=== PATIENT | female | born 1985 | race American Indian/Alaskan Native ===

== ENCOUNTER 2017-04-13 11:00 | Emergency (ER) | payer SELFPAY ==
[2017-04-13 12:17] LABS: Basophils % (Auto) 0.5 % (0.0-1.8); Eosinophils % (Auto) 0.3 % (0.0-4.3); Hematocrit 38.8 % (30.3-42.9); Hemoglobin 12.9 gm/dl (10.1-14.3); Mean Corpuscular HGB Conc 33 % (30-34); Mean Corpuscular Hemoglobin 29 pg (28-32); Mean Corpuscular Volume 87 fl (79-97); Platelet Count 271 K/mm3 (140-440); Red Blood Count 4.44 M/mm3 (3.65-5.03); Red Cell Distribution Width 14.2 % (13.2-15.2); White Blood Count 6.4 K/mm3 (4.5-11.0)
[2017-04-13 12:33] LABS: Anion Gap 18 mmol/L; BUN/Creatinine Ratio 8.57; Blood Urea Nitrogen 6 mg/dL (7-17); Calcium 8.9 mg/dL (8.4-10.2); Carbon Dioxide 22 mmol/L (22-30); Chloride 98.3 mmol/L (98-107); Glucose 82 mg/dL (65-100); Potassium 3.3 mmol/L (3.6-5.0); Sodium 135 mmol/L (137-145)
[2017-04-13 15:17] LABS: Bacteria,Urine 1+ /HPF (Negative); Bilirubin,Urine NEG (Negative); Blood,Urine NEG (Negative); Ketones,Urine 80 mg/dL (Negative); Leukocyte Esterase,Urine LG (Negative); Mucus,Urine 2+ /HPF; Nitrite,Urine NEG (Negative)
[2017-04-13 15:27] VITALS: BP 101/76
[2017-04-13] MEDS ORDERED: ZOFRAN IV ONE (15:53)
--- NOTE | 2017-04-13 15:53 | Emergency Department Report ---
<ORLANDO SHANKS - Last Filed: 04/13/17 17:49> ED General Adult HPI - General Chief complaint: Nausea/Vomiting/Diarrhea Stated complaint: NAUSEA/VOMITING Time Seen by Provider: 04/13/17 15:10 Source: patient Mode of arrival: Ambulatory Limitations: No Limitations - History of Present Illness Initial comments: n/v abdominal pain x 1 week LMP 03/05/2017, pt describes pain as aching cramping pt denies vaginal discharge no vaginal bleeding no fever no chills" Onset/Timin -: week(s) Location: abdomen Radiation: back Severity scale (0 -10): 3 Quality: aching Consistency: intermittent Improves with: none Worsens with: none Associated Symptoms: other (nausea no vomiting ). denies: chest pain, cough, fever/chills, shortness of breath, weakness Treatments Prior to Arrival: none - Related Data Previous Rx's Medication Instructions Recorded Last Taken Type Acetaminophen/Codeine [Tylenol #3] 1 tab PO Q8H PRN #12 tablet 07/01/15 Unknown Rx Ibuprofen [Motrin] 800 mg PO Q8HR PRN #15 tablet 07/01/15 Unknown Rx Cephalexin [Keflex] 500 mg PO Q12HR #20 cap 04/13/17 Unknown Rx Ondansetron [Zofran Odt] 4 mg PO Q8H PRN #12 tab.rapdis 04/13/17 Unknown Rx Allergies Allergy/AdvReac Type Severity Reaction Status Date / Time No Known Allergies Allergy Verified 07/01/15 16:40 ED Review of Systems ROS: Stated complaint: NAUSEA/VOMITING Other details as noted in HPI Constitutional: denies: chills, fever Eyes: denies: eye pain, eye discharge, vision change ENT: denies: ear pain, throat pain Respiratory: denies: cough, shortness of breath, wheezing Cardiovascular: denies: chest pain, palpitations Endocrine: no symptoms reported Gastrointestinal: abdominal pain, nausea. denies: diarrhea, constipation, hematemesis, melena, hematochezia Genitourinary: urgency. denies: dysuria, hematuria, discharge, dyspareunia Musculoskeletal: back pain Skin: denies: rash, lesions Neurological: denies: headache, weakness, paresthesias Psychiatric: denies: anxiety, depression Hematological/Lymphatic: denies: easy bleeding, easy bruising ED Past Medical Hx - Past Medical History Previous Medical History?: No - Social History Smoking Status: Never Smoker Substance Use Type: None - Medications Home Medications: Home Medications Medication Instructions Recorded Confirmed Last Taken Type Acetaminophen/Codeine [Tylenol #3] 1 tab PO Q8H PRN #12 tablet 07/01/15 Unknown Rx Ibuprofen [Motrin] 800 mg PO Q8HR PRN #15 tablet 07/01/15 Unknown Rx Cephalexin [Keflex] 500 mg PO Q12HR #20 cap 04/13/17 Unknown Rx Ondansetron [Zofran Odt] 4 mg PO Q8H PRN #12 tab.rapdis 04/13/17 Unknown Rx ED Physical Exam - General Limitations: No Limitations ED Course Vital Signs 04/13/17 04/13/17 11:49 15:25 Temperature 98.7 F 98.4 F Pulse Rate 92 H 74 Respiratory 20 18 Rate Blood Pressure 114/72 Blood Pressure 101/76 [Left] O2 Sat by Pulse 100 100 Oximetry ED Medical Decision Making - Lab Data Result diagrams: 04/13/17 12:01 04/13/17 12:01 Laboratory Tests 04/13/17 04/13/17 04/13/17 12:01 12:01 12:01 WBC 6.4 RBC 4.44 Hgb 12.9 Hct 38.8 MCV 87 MCH 29 MCHC 33 RDW 14.2 Plt Count 271 Lymph % (Auto) 26.7 Real % (Auto) 7.3 Eos % (Auto) 0.3 Baso % (Auto) 0.5 Lymph # 1.7 Real # 0.5 Eos # 0.0 Baso # 0.0 Seg Neutrophils % 65.2 Seg Neutrophils # 4.2 Sodium 135 L Potassium 3.3 L Chloride 98.3 Carbon Dioxide 22 Anion Gap 18 BUN 6 L Creatinine 0.7 Estimated GFR > 60 BUN/Creatinine Ratio 8.57 Glucose 82 Calcium 8.9 HCG, Qual Positive Urine Color Urine Turbidity Urine pH Ur Specific Jean Urine Protein Urine Glucose (UA) Urine Ketones Urine Blood Urine Nitrite Urine Bilirubin Urine Urobilinogen Ur Leukocyte Esterase Urine WBC (Auto) Urine RBC (Auto) U Epithel Cells (Auto) Urine Bacteria (Auto) Urine Mucus 04/13/17 15:03 WBC RBC Hgb Hct MCV MCH MCHC RDW Plt Count Lymph % (Auto) Real % (Auto) Eos % (Auto) Baso % (Auto) Lymph # Real # Eos # Baso # Seg Neutrophils % Seg Neutrophils # Sodium Potassium Chloride Carbon Dioxide Anion Gap BUN Creatinine Estimated GFR BUN/Creatinine Ratio Glucose Calcium HCG, Qual Urine Color Yellow Urine Turbidity Slightly-cloudy Urine pH 5.0 Ur Specific Jean 1.026 Urine Protein 30 mg/dl Urine Glucose (UA) Neg Urine Ketones 80 Urine Blood Neg Urine Nitrite Neg Urine Bilirubin Neg Urine Urobilinogen 2.0 Ur Leukocyte Esterase Lg Urine WBC (Auto) 8.0 H Urine RBC (Auto) 10.0 U Epithel Cells (Auto) 13.0 Urine Bacteria (Auto) 1+ Urine Mucus 2+ - Medical Decision Making pt is a 31 y/o aaf who presents for abdominal pain and nausea x 1 week LMP 2016, pt denies fever or chills no vomiting , pt is currently tolerating po intake without n/v , exam: pt appears nontoxic , abd: bsx 4 qds abd soft nontender no rebound no bruit no hernia ,mild superpubic tenderness to palpation pt denies vaginal discharge no vaginal bleeding no pelvic pain , no cva tenderness, Labs noted , K:3.3, ua: luek, bacteria, wet prep, vaginal exam: no bleeding no discharge no trauma os is closed no bleeding no discharge, there no mass no lesions no open sores , no malodor, normal vaginal exam. Plan: US <14 weeks, Transvaginal : live interuterine , gestational age : 6 weeks and 2 days , Wet prep, GC/Ch culture, tx for uti, , follow up with [facility]: Bharat Cao Critical care attestation.: If time is entered above; I have spent that time in minutes in the direct care of this critically ill patient, excluding procedure time. ED Disposition Disposition: DC-01 TO HOME OR SELFCARE Is pt being admited?: No Does the pt Need Aspirin: No Condition: Good Instructions: (ED) Additional Instructions: follow up with [facility] as directed Prescriptions: Cephalexin [Keflex] 500 mg PO Q12HR #20 cap Ondansetron [Zofran Odt] 4 mg PO Q8H PRN #12 tab.rapdis PRN Reason: Nausea Referrals: PRIMARY CAREMD [Primary Care Provider] - 3-5 Days LUIZ CAO MD [Staff Physician] - 3-5 Days Forms: Work/School Release Form(ED) Time of Disposition: 17:55 <ANA ROMAN - Last Filed: 04/13/17 18:28> ED Medical Decision Making - Lab Data Result diagrams: 04/13/17 12:01 04/13/17 12:01
[2017-04-13] MEDS ORDERED: NACL 0.9% 1000 ML 1,000 ML IV ONE (15:55)
--- NOTE | 2017-04-13 17:42 | Ultrasound Report ---
FINAL REPORT EXAM: US OB TRANSVAGINAL HISTORY: pos hcg TECHNIQUE: Transabdominal and transvaginal sonography of the pelvis. PRIORS: None. FINDINGS: There is a single, live intrauterine . Ultrasound estimated gestational age is 6 weeks 2 days. Ultrasound estimated date of delivery is 05 December 2017. heart motion is detected. Remainder of uterus and adnexa are grossly unremarkable. IMPRESSION: 1. Single, live intrauterine .
--- NOTE | 2017-04-13 17:43 | Ultrasound Report ---
FINAL REPORT EXAM: US OB \T\lt; = 14 WEEKS FETUS HISTORY: pos hcg TECHNIQUE: Transabdominal and transvaginal sonography of the pelvis. PRIORS: None. FINDINGS: There is a single, live intrauterine . Ultrasound estimated gestational age is 6 weeks 2 days. Ultrasound estimated date of delivery is 05 December 2017. heart motion is detected. Remainder of uterus and adnexa are grossly unremarkable. IMPRESSION: 1. Single, live intrauterine .
== END 2017-04-13 18:06 | disposition home or self-care (01) ==
LOC: ED 11:00
DX: R10.9 Unspecified abdominal pain (principal); R11.0 Nausea
CPT/HCPCS: 36415; 76801; 76817; 80048; 81001; 82962; 84702; 84703; 85025; 87210; 87591; 96361; 96374; 99284; J2405; J7030

== ENCOUNTER 2017-05-12 23:08 | Emergency (ER) | payer OTHER ==
[2017-05-13 00:31] LABS: Basophils % (Auto) 0.4 % (0.0-1.8); Eosinophils % (Auto) 0.3 % (0.0-4.3); Hematocrit 41.9 % (30.3-42.9); Hemoglobin 14.7 gm/dl (10.1-14.3); Mean Corpuscular HGB Conc 35 % (30-34); Mean Corpuscular Hemoglobin 31 pg (28-32); Mean Corpuscular Volume 87 fl (79-97); Platelet Count 288 K/mm3 (140-440); Red Blood Count 4.81 M/mm3 (3.65-5.03); Red Cell Distribution Width 14.8 % (13.2-15.2); White Blood Count 7.2 K/mm3 (4.5-11.0)
[2017-05-13 01:17] LABS: Alanine Aminotransferase 11 units/L (7-56); Albumin 4.1 g/dL (3.9-5); Albumin/Globulin Ratio 1.1 %; Alkaline Phosphatase 53 units/L (35-129); Anion Gap 18 mmol/L; BUN/Creatinine Ratio 13.33; Blood Urea Nitrogen 8 mg/dL (7-17); Calcium 9.8 mg/dL (8.4-10.2); Carbon Dioxide 25 mmol/L (22-30); Chloride 94.7 mmol/L (98-107); Glucose 94 mg/dL (65-100); Lipase 33 units/L (13-60); Potassium 3.3 mmol/L (3.6-5.0); Sodium 134 mmol/L (137-145); Total Protein 7.9 g/dL (6.3-8.2)
--- NOTE | 2017-05-13 02:44 | Ultrasound Report ---
FINAL REPORT PROCEDURE: US OB \T\lt; = 14 WEEKS FETUS TECHNIQUE: Real-time transabdominal sonography of the uterus, placenta, amniotic fluid, adnexa, and fetus was performed with image documentation. Measurements were obtained to determine age/size. M-mode Doppler was used to document heartbeat. CPT 60800 HISTORY: abd pain COMPARISON: No prior studies are available for comparison. FINDINGS: CRL: 42.4 mm, which corresponds to a gestational age of: 11 weeks, 1 days. Yolk Sac: Normal. Embryonic Cardiac Activity: 164 beats per minute Gestational Sac: Normal. Amniotic fluid: Normal. Cervix: Normal. Right Ovary: Normal. Left Ovary: Normal. Estimated delivery date: 12/01/2017 Uterus and adnexa: Normal. IMPRESSION: Single live intrauterine gestation at approximately 11 weeks and 1 day. EDC by US 12/01/2017
[2017-05-13] MEDS ORDERED: ZOFRAN ODT ONE (04:16)
[2017-05-13] MEDS ORDERED: ZOFRAN IV ONE (04:52)
--- NOTE | 2017-05-13 04:52 | Emergency Department Report ---
ED General Adult HPI - General Chief complaint: Nausea/Vomiting/Diarrhea Stated complaint: PREG 8 WKS/NAUSEA/VOMITING Time Seen by Provider: 05/13/17 04:52 Source: patient, RN notes reviewed Mode of arrival: Ambulatory Limitations: No Limitations - History of Present Illness Initial comments: This is a 32-year-old female. She is previously unknown to me. Last menstrual period is March 03. She is 3, para 2. She reports that during her prior pregnancies, she did not have any issues with hyperemesis gravidarum. The patient presents to the ER with intractable nausea and vomiting, unintentional weight loss, abdominal cramping. She reports that the nausea and vomiting is basically constant during the duration of this . No fevers or chills. No chest pain or shortness of breath. No irritative or obstructive urinary symptoms. Her symptoms worsen when she attempts to eat. -: Gradual, week(s) Location: abdomen Quality: aching Consistency: intermittent Improves with: rest Worsens with: eating, movement Associated Symptoms: malaise, nausea/vomiting, weakness. denies: confusion, chest pain, cough - Related Data Previous Rx's Medication Instructions Recorded Last Taken Type Acetaminophen/Codeine [Tylenol #3] 1 tab PO Q8H PRN #12 tablet 07/01/15 Unknown Rx Ibuprofen [Motrin] 800 mg PO Q8HR PRN #15 tablet 07/01/15 Unknown Rx Cephalexin [Keflex] 500 mg PO Q12HR #20 cap 04/13/17 Unknown Rx Ondansetron [Zofran Odt] 4 mg PO Q8H PRN #12 tab.rapdis 04/13/17 Unknown Rx Doxylamine/Pyridoxine HCl 1 each PO QHS PRN #30 tablet. 05/13/17 Unknown Rx [Bertram Donis 10-10 mg Tablet] Angelique Root [Angelique] 250 mg PO QID PRN #60 capsule 05/13/17 Unknown Rx Ondansetron [Zofran Odt] 4 mg PO QID PRN #20 tab.rapdis 05/13/17 Unknown Rx Vit W-Ca,Fe,FA(<1 mg) 1 each PO QDAY #30 tablet 05/13/17 Unknown Rx [ Vitamins] Allergies Allergy/AdvReac Type Severity Reaction Status Date / Time No Known Allergies Allergy Verified 05/13/17 04:21 ED Review of Systems ROS: Stated complaint: PREG 8 WKS/NAUSEA/VOMITING Other details as noted in HPI Constitutional: malaise. denies: fever Eyes: denies: vision change ENT: denies: dental pain, epistaxis Respiratory: denies: cough Cardiovascular: denies: chest pain Gastrointestinal: denies: nausea, vomiting Genitourinary: denies: dysuria Musculoskeletal: denies: back pain Skin: denies: lesions Neurological: weakness Psychiatric: anxiety ED Past Medical Hx - Past Medical History Previous Medical History?: No - Surgical History Past Surgical History?: No - Social History Smoking Status: Current Every Day Smoker Substance Use Type: None - Medications Home Medications: Home Medications Medication Instructions Recorded Confirmed Last Taken Type Acetaminophen/Codeine [Tylenol #3] 1 tab PO Q8H PRN #12 tablet 07/01/15 Unknown Rx Ibuprofen [Motrin] 800 mg PO Q8HR PRN #15 tablet 07/01/15 Unknown Rx Cephalexin [Keflex] 500 mg PO Q12HR #20 cap 04/13/17 Unknown Rx Ondansetron [Zofran Odt] 4 mg PO Q8H PRN #12 tab.rapdis 04/13/17 Unknown Rx Doxylamine/Pyridoxine HCl 1 each PO QHS PRN #30 tablet.dr 05/13/17 Unknown Rx [Dicaustyn Dr 10-10 mg Tablet] Angelique Root [Angelique] 250 mg PO QID PRN #60 capsule 05/13/17 Unknown Rx Ondansetron [Zofran Odt] 4 mg PO QID PRN #20 tab.rapdis 05/13/17 Unknown Rx Vit W-Ca,Fe,FA(<1 mg) 1 each PO QDAY #30 tablet 05/13/17 Unknown Rx [ Vitamins] ED Physical Exam - General Limitations: No Limitations General appearance: alert, in no apparent distress - Head Head exam: Present: atraumatic, normocephalic - Eye Eye exam: Present: normal appearance, PERRL, EOMI. Absent: nystagmus - ENT ENT exam: Present: normal exam, normal orophraynx, mucous membranes moist, normal external ear exam - Neck Neck exam: Present: normal inspection, full ROM. Absent: tenderness, meningismus - Respiratory Respiratory exam: Present: normal lung sounds bilaterally. Absent: respiratory distress, wheezes, rales, rhonchi, stridor, chest wall tenderness - Cardiovascular Cardiovascular Exam: Present: regular rate, normal rhythm, normal heart sounds. Absent: bradycardia, tachycardia, irregular rhythm, systolic murmur, diastolic murmur, rubs, gallop - GI/Abdominal GI/Abdominal exam: Present: soft, normal bowel sounds. Absent: distended, tenderness, guarding, rebound, rigid, pulsatile mass - Extremities Exam Extremities exam: Present: normal inspection, full ROM, normal capillary refill. Absent: tenderness, pedal edema, joint swelling, calf tenderness - Back Exam Back exam: Present: normal inspection, full ROM. Absent: tenderness, CVA tenderness (R), CVA tenderness (L), muscle spasm, paraspinal tenderness, vertebral tenderness - Neurological Exam Neurological exam: Present: alert, oriented X3, normal gait, other (Extraocular movements intact. Tongue midline. No facial droop. Facial sensation intact to light touch in the V1, V2, V3 distribution bilaterally. 5 and 5 strength in 4 extremities.. Sensation is intact to light touch in 4 extremities.). Absent : motor sensory deficit - Psychiatric Psychiatric exam: Present: normal affect, normal mood - Skin Skin exam: Present: warm, dry, intact, normal color. Absent: rash ED Course Vital Signs 05/12/17 05/13/17 05/13/17 23:13 04:41 04:45 Temperature 98.8 F Pulse Rate 90 82 Respiratory 20 12 18 Rate Blood Pressure 105/76 72/31 O2 Sat by Pulse 100 100 100 Oximetry 05/13/17 05/13/17 05/13/17 04:51 05:11 05:31 Temperature Pulse Rate 75 68 76 Respiratory 13 13 13 Rate Blood Pressure 102/77 100/68 100/68 O2 Sat by Pulse 100 100 91 Oximetry - Reevaluation(s) Reevaluation #1: 05/13/17 05:34 differential diagnosis: Dehydration, electrolyte derangement, hyperemesis, Assessment and plan: 32-year-old female with nausea and vomiting, hypokalemia, transient hypotension now resolved, unintentional weight loss, most likely along inspection of hyperemesis gravidarum. She will be treated empirically with normal saline and D5 half-normal. She is given Zofran IV. She is feeling better. Hypotension improved. Hypokalemia To be repleted. Urinalysis pending. Reevaluation #2: 05/13/17 06:[address] Bowman. If the patient is able to tolerate liquid feeds, plan is to discharge. If she fails her oral challenge, plan to admit to NEUROLOGICAL SURGERY TEACHER. ED Medical Decision Making - Lab Data Result diagrams: 05/13/17 00:16 05/13/17 00:16 Vital Signs 05/12/17 05/13/17 05/13/17 23:13 04:41 04:45 Temperature 98.8 F Pulse Rate 90 82 Respiratory 20 12 18 Rate Blood Pressure 105/76 72/31 O2 Sat by Pulse 100 100 100 Oximetry 05/13/17 05/13/17 04:51 05:11 Temperature Pulse Rate 75 68 Respiratory 13 13 Rate Blood Pressure 102/77 100/68 O2 Sat by Pulse 100 100 Oximetry Lab Results 05/13/17 05/13/17 05/13/17 Range/Units 00:16 00:16 00:16 WBC 7.2 (4.5-11.0) K/mm3 RBC 4.81 (3.65-5.03) M/mm3 Hgb 14.7 H (10.1-14.3) gm/dl Hct 41.9 (30.3-42.9) % MCV 87 (79-97) fl MCH 31 (28-32) pg MCHC 35 H (30-34) % RDW 14.8 (13.2-15.2) % Plt Count 288 (140-440) K/mm3 Lymph % (Auto) 28.5 (13.4-35.0) % Imperial % (Auto) 6.2 (0.0-7.3) % Eos % (Auto) 0.3 (0.0-4.3) % Baso % (Auto) 0.4 (0.0-1.8) % Lymph # 2.1 (1.2-5.4) K/mm3 Imperial # 0.4 (0.0-0.8) K/mm3 Eos # 0.0 (0.0-0.4) K/mm3 Baso # 0.0 (0.0-0.1) K/mm3 Seg Neutrophils % 64.6 (40.0-70.0) % Seg Neutrophils # 4.7 (1.8-7.7) K/mm3 Sodium 134 L (137-145) mmol/L Potassium 3.3 L (3.6-5.0) mmol/L Chloride 94.7 L (98-107) mmol/L Carbon Dioxide 25 (22-30) mmol/L Anion Gap 18 mmol/L BUN 8 (7-17) mg/dL Creatinine 0.6 L (0.7-1.2) mg/dL Estimated GFR > 60 ml/min BUN/Creatinine Ratio 13.33 % Glucose 94 (65-100) mg/dL Calcium 9.8 (8.4-10.2) mg/dL Total Bilirubin 0.60 (0.1-1.2) mg/dL AST 17 (5-40) units/L ALT 11 (7-56) units/L Alkaline Phosphatase 53 (35-129) units/L Total Protein 7.9 (6.3-8.2) g/dL Albumin 4.1 (3.9-5) g/dL Albumin/Globulin Ratio 1.1 % Lipase 33 (13-60) units/L HCG, Quant 09569 H (0-4) mIU/mL Urine Bilirubin (Negative) Urine RBC (Auto) (0.0-6.0) /HPF U Epithel Cells (Auto) (0-13.0) /HPF 05/13/17 Range/Units 04:45 WBC (4.5-11.0) K/mm3 RBC (3.65-5.03) M/mm3 Hgb (10.1-14.3) gm/dl Hct (30.3-42.9) % MCV (79-97) fl MCH (28-32) pg MCHC (30-34) % RDW (13.2-15.2) % Plt Count (140-440) K/mm3 Lymph % (Auto) (13.4-35.0) % Imperial % (Auto) (0.0-7.3) % Eos % (Auto) (0.0-4.3) % Baso % (Auto) (0.0-1.8) % Lymph # (1.2-5.4) K/mm3 Imperial # (0.0-0.8) K/mm3 Eos # (0.0-0.4) K/mm3 Baso # (0.0-0.1) K/mm3 Seg Neutrophils % (40.0-70.0) % Seg Neutrophils # (1.8-7.7) K/mm3 Sodium (137-145) mmol/L Potassium (3.6-5.0) mmol/L Chloride (98-107) mmol/L Carbon Dioxide (22-30) mmol/L Anion Gap mmol/L BUN (7-17) mg/dL Creatinine (0.7-1.2) mg/dL Estimated GFR ml/min BUN/Creatinine Ratio % Glucose (65-100) mg/dL Calcium (8.4-10.2) mg/dL Total Bilirubin (0.1-1.2) mg/dL AST (5-40) units/L ALT (7-56) units/L Alkaline Phosphatase (35-129) units/L Total Protein (6.3-8.2) g/dL Albumin (3.9-5) g/dL Albumin/Globulin Ratio % Lipase (13-60) units/L HCG, Quant (0-4) mIU/mL Urine Bilirubin Neg (Negative) Urine RBC (Auto) 6.0 (0.0-6.0) /HPF U Epithel Cells (Auto) 17.0 H (0-13.0) /HPF - Radiology Data Radiology results: report reviewed, image reviewed ob ultrasound: intrauterine 11 weeks and 1 day fh: 164 bpm no bleed Critical care attestation.: If time is entered above; I have spent that time in minutes in the direct care of this critically ill patient, excluding procedure time. ED Disposition Clinical Impression: Nausea and vomiting during Does the pt Need Aspirin: No Condition: Good Instructions: Hyperemesis Gravidarum (ED) Additional Instructions: Take the medications as directed. Follow up with an NEUROLOGICAL SURGERY TEACHER doctor as soon as possible. Return to the ER right away with new pain, worsened pain, migration of pain, fevers, chills, lethargy, irritability, projectile vomiting, inability to tolerate liquid feeds. Prescriptions: Doxylamine/Pyridoxine HCl [Bertram Donis 10-10 mg Tablet] 1 each PO QHS PRN #30 tablet. PRN Reason: Nausea Angelique Root [Angelique] 250 mg PO QID PRN #60 capsule PRN Reason: Nausea Ondansetron [Zofran Odt] 4 mg PO QID PRN #20 tab.rapdis PRN Reason: Nausea Vit W-Ca,Fe,FA(<1 mg) [ Vitamins] 1 each PO QDAY #30 tablet Referrals: PRIMARY CARE, [Primary Care Provider] - 3-5 Days [facility] [Provider Group] - 3-5 Days [facility] [Provider Group] - 3-5 Days [facility] [Provider Group] - 3-5 Days
[2017-05-13] MEDS ORDERED: NACL 0.9% 1000 ML 2,000 ML IV ONE (04:57)
[2017-05-13] MEDS ORDERED: D5/0.45NS 1,000 ML IV SCH (05:00)
[2017-05-13] MEDS: KCL 10MEQ/100ML 10 MEQ/100 ML BAG IV SCH ×2 (05:19→06:05)
[2017-05-13 05:34] LABS: Bacteria,Urine 1+ /HPF (Negative); Bilirubin,Urine NEG (Negative); Blood,Urine NEG (Negative); Ketones,Urine 80 mg/dL (Negative); Leukocyte Esterase,Urine MOD (Negative); Mucus,Urine 3+ /HPF; Nitrite,Urine NEG (Negative); Urobilinogen,Urine < 2.0 mg/dL (<2.0)
[2017-05-13] MEDS ORDERED: TYLENOL PO ONE (05:49)
[2017-05-13 10:03] VITALS: BP 102/56
== END 2017-05-13 10:03 ==
LOC: ED 23:08
DX: O21.0 Mild hyperemesis gravidarum (principal); O99.331 Smoking (tobacco) complicating pregnancy, first trimester; Z3A.12 12 weeks gestation of pregnancy
CPT/HCPCS: 36415; 76801; 80053; 81001; 83690; 83735; 84702; 85025; 96361; 96374; 99284; J2405; J3480; J7030; Q0162

== ENCOUNTER 2017-09-12 14:48 | Outpatient (CLI) | payer BC, MEDICAID ==
[2017-09-12] MEDS ORDERED: LACTATED RINGERS 1,000 ML IV ONE (14:50)
[2017-09-12 15:22] LABS: Bacteria,Urine 1+ /HPF (Negative); Bilirubin,Urine NEG (Negative); Blood,Urine NEG (Negative); Ketones,Urine NEG (Negative); Leukocyte Esterase,Urine MOD (Negative); Mucus,Urine FEW /HPF; Nitrite,Urine NEG (Negative); Protein,Urine <15 mg/dL mg/dL (Negative); Urobilinogen,Urine < 2.0 mg/dL (<2.0)
== END 2017-09-12 18:13 | disposition home or self-care (01) ==
LOC: TRG 14:48
PROVIDERS: ATTEND Obstetrics & Gynecology
DX: O99.332 Smoking (tobacco) complicating pregnancy, second trimester (principal); Z3A.27 27 weeks gestation of pregnancy
CPT/HCPCS: 36415; 81001; 82731